=== PATIENT | male | born 2005 | race Two or more races ===

== ENCOUNTER 2024-01-19 04:53 | Inpatient (IN) | payer OTHER ==
[~2024-01-19] VITALS: Ht 193 cm; Wt 91.0 kg
[2024-01-19 05:55] LABS: BASOPHILS % (AUTO) 0.3 % (0.0-2.0); EOSINOPHILS % (AUTO) 0.5 % (1.0-6.0); HEMATOCRIT 41.1 % (41-53); HEMOGLOBIN 13.6 g/dL (13.5-17.5); LYMPHOCYTES # (AUTO) 1.8 K/uL (1.0-4.8); LYMPHOCYTES % (AUTO) 8.8 % (22.0-44.0); MEAN CORPUSCULAR HEMOGLOBIN 28.8 pg (26.0-34.0); MEAN CORPUSCULAR HGB CONC 33.2 G/dL (31.0-37.0); MEAN CORPUSCULAR VOLUME 87 fL (80-100); NEUTROPHILS # (AUTO) 16.4 K/uL (1.8-7.7); NEUTROPHILS % (AUTO) 80.4 % (40.0-70.0); PLATELET COUNT (AUTO) 273 K/uL (150-450); RED BLOOD CELL COUNT(AUTO) 4.74 MIL/uL (4.50-5.90); RED CELL DISTRIBUTION WIDTH 13.4 % (11.5-14.5); WHITE BLOOD COUNT (AUTO) 20.4 K/uL (4.5-11.0)
[2024-01-19 06:05] LABS: ANION GAP 9 mmol/L (8-16); CALCIUM, TOTAL 9.2 mg/dL (8.8-10.5); CARBON DIOXIDE 25 mmol/L (22-29); CHLORIDE 107 mmol/L (98-107); CREATININE 1.02 mg/dL (0.60-1.30); GLOMERULAR FILTR. RATE CALC > 60 mL/min (>60); GLUCOSE,RANDOM 89 mg/dL (70-110); POTASSIUM 3.8 mmol/L (3.5-5.1); SODIUM SERUM 141 mmol/L (136-145); UREA NITROGEN, BLOOD 8 mg/dL (7-18)
[2024-01-19 06:10] LABS: ALCOHOL, BLOOD (SERUM) < 3 mg/dL (0-10)
[2024-01-19 06:53] LABS: COVID AG,FIA SOURCE NASAL SWAB
[2024-01-19] MEDS: SODIUM CHLORIDE 0.9% 250 ML IRRIG SOLUTION BOTTLE IRRIG ONE (07:18)
[2024-01-19] MEDS: BACITRACIN 0.9 GM PACKET OINTMENT TP ONE (07:24)
[2024-01-19] MEDS: PERTUSS(ACELL),DIPH,TET/PF 0.5 ML SYRINGE [ADULT] IM. ONE (07:26)
[2024-01-19] MEDS: ACETAMINOPHEN 500 MG TABLET PO ONE (07:26)
[2024-01-19 07:31] LABS: SARS-COV2 (COVID) ANTIGEN,FIA Negative (Negative)
[2024-01-19] MEDS ORDERED: ZOLPIDEM TARTRATE 10 MG TABLET PO PRN (08:30)
[2024-01-19] MEDS ORDERED: LORazepam 2 MG TABLET PO PRN (08:30)
[2024-01-19] MEDS ORDERED: OLANZapine 5 MG RAPDIS TABLET PO PRN (08:30)
[2024-01-19 09:17] LABS: ALCOHOL, URINE DRUG SCREEN NEGATIVE (NEGATIVE); AMPHET/METH SCREEN,URINE NEGATIVE (NEGATIVE); APPEARANCE,URINE CLEAR (CLEAR); BARBITURATE SCREEN, URINE NEGATIVE (NEGATIVE); BENZODIAZEPINES SCREEN,URINE NEGATIVE (NEGATIVE); BILIRUBIN,URINE NEGATIVE (NEGATIVE); CANNABINOID SCREEN,URINE NEGATIVE (NEGATIVE); COCAINE SCREEN,URINE NEGATIVE (NEGATIVE); COLOR,URINE YELLOW (YELLOW); GLUCOSE, URINE (UA) NEGATIVE (NEGATIVE); KETONES,URINE NEGATIVE (NEGATIVE); LEUKOCYTE ESTERASE ,URINE NEGATIVE (NEGATIVE); METHADONE SCREEN, URINE NEGATIVE (NEGATIVE); NITRATE,URINE NEGATIVE (NEGATIVE); OCCULT BLOOD,URINE NEGATIVE (NEGATIVE); OPIATE SCREEN,URINE NEGATIVE (NEGATIVE); PHENCYCLIDINE SCREEN,URINE NEGATIVE (NEGATIVE); PROTEIN,URINE 30-70 mg/dL (NEGATIVE); UROBILINOGEN,URINE <=1.0 mg/dL (<=1.0)
[2024-01-19 09:22] LABS: SPECIFIC GRAVITIY, URINE > 1.030 (1.003-1.030)
[2024-01-19 23:15] VITALS: BP 153/75; PULSE 82; RESP 20; TEMP 98.4; O2SAT 96
[2024-01-20] MEDS ORDERED: PROMETHAZINE HCL 25 MG TABLET PO PRN (08:45)
[2024-01-20] MEDS ORDERED: MAG HYDROX/ALUMINUM HYD/SIMETH ES 30 ML SUSPENSION UDCUP PO PRN (08:45)
[2024-01-20] MEDS ORDERED: ACETAMINOPHEN 325 MG TABLET PO PRN (08:45)
[2024-01-20] MEDS ORDERED: LOPERAMIDE HCL 2 MG CAPSULE PO PRN (08:45)
[2024-01-20] MEDS ORDERED: MAGNESIUM HYDROXIDE SUSPENSION 30 ML UDCUP PO PRN (08:45)
[2024-01-20] MEDS ORDERED: GuaiFENesin/D-METHORPHAN [SUGAR-FREE] 200-20MG/10 ML SYRUP UDCUP PO PRN (08:45)
[2024-01-20] MEDS ORDERED: HydrOXYzine PAMOATE 50 MG CAPSULE PO PRN (08:45)
[2024-01-20] MEDS ORDERED: FLUoxetine HCL 20 MG CAPSULE PO SCH (09:00)
[2024-01-20 10:29] VITALS: BP 118/85; PULSE 100; RESP 18; TEMP 98
[2024-01-20] MEDS: FOLIC ACID 1 MG TABLET PO SCH (11:09)
[2024-01-20] MEDS: NALTREXONE HCL 50 MG TABLET PO SCH (11:09)
[2024-01-20] MEDS: MULTIVITAMINS WITH MINERALS, THERAPEUTIC TABLET PO SCH (11:09)
[2024-01-20] MEDS: THIAMINE 100 MG TABLET PO SCH (11:09)
[2024-01-20] MEDS: OMEGA-3/DHA/EPA/FISH OIL 1,000 MG CAPSULE PO SCH (11:10)
[2024-01-20] MEDS: SERTRALINE HCL 50 MG TABLET PO SCH (11:10)
[2024-01-20 20:44] VITALS: BP 138/90; PULSE 98; RESP 18; TEMP 97.5
[2024-01-20] MEDS: MELATONIN 5 MG TABLET PO SCH (21:41)
[2024-01-21 07:23] LABS: HEMOGLOBIN A1C 5.1 % (3.8-5.6)
[2024-01-21 07:44] LABS: FREE T4 (FREE THYROXINE) 1.23 ng/dL (0.76-1.46); THYROID STIMULATING HORMONE 0.2 uIU/mL (0.36-3.74)
[2024-01-21 09:23] VITALS: BP 116/70; PULSE 99; RESP 18; TEMP 98.2
[2024-01-21] MEDS ORDERED: OMEG-135 PO (11:42)
[2024-01-21] MEDS ORDERED: MELA5TAB40 PO (11:42)
[2024-01-21] MEDS ORDERED: SERT-440 PO (11:42)
[2024-01-21 22:16] VITALS: BP 122/70; PULSE 86; RESP 18; TEMP 97.9
[2024-01-22] MEDS: SERTRALINE HCL 100 MG TABLET PO SCH (09:14)
[2024-01-22 10:57] VITALS: BP 129/81; PULSE 88; RESP 18; TEMP 97.7
== END 2024-01-22 17:30 | disposition home or self-care (01) | DRG 885 ==
LOC: EMS 04:53 → EDBEDREQSVC 22:01 → B3A 22:08 → 3EI 23:08
PROVIDERS: ADMIT Psychiatry & Neurology Psychiatry; ATTEND Psychiatry & Neurology Psychiatry
PROC: GZHZZZZ Group Psychotherapy (ICD-10-PCS; 2024-01-20)
PROC: GZ51ZZZ Individual Psychotherapy, Behavioral (ICD-10-PCS; 2024-01-20)
PROC: GZ52ZZZ Individual Psychotherapy, Cognitive (ICD-10-PCS; 2024-01-20)
PROC: GZ56ZZZ Individual Psychotherapy, Supportive (ICD-10-PCS; principal; 2024-01-21)
DX: F33.2 Major depressive disorder, recurrent severe without psychotic features (principal); R45.851 Suicidal ideations; D72.829 Elevated white blood cell count, unspecified; S00.83XA Contusion of other part of head, initial encounter; S11.91XA Laceration without foreign body of unspecified part of neck, initial encounter; R80.9 Proteinuria, unspecified; S10.91XA Abrasion of unspecified part of neck, initial encounter; D69.2 Other nonthrombocytopenic purpura; S60.221A Contusion of right hand, initial encounter; F41.9 Anxiety disorder, unspecified; Z20.822 Contact with and (suspected) exposure to COVID-19; S60.222A Contusion of left hand, initial encounter; X83.8XXA Intentional self-harm by other specified means, initial encounter; Y93.89 Activity, other specified; Y92.89 Other specified places as the place of occurrence of the external cause; Y99.8 Other external cause status; Z81.8 Family history of other mental and behavioral disorders; Z91.199 Patient's noncompliance with other medical treatment and regimen due to unspecified reason
CPT/HCPCS: 70450; 70486; 70498; 72125; 80048; 80307; 81003; 83036; 84439; 84443; 85025; 86592; 90715; 99285; G0480